=== PATIENT | female | born 1980 | race Caucasian/White ===

== ENCOUNTER 2016-11-01 02:10 | Emergency (ER) | payer SELFPAY ==
--- NOTE | 2016-11-01 02:29 | PDOC ---
History of Present Illness - History of Present Illness Initial Comments: 11/01/16 03:11 The patient is a 36 year old female, with a significant past medical history of kidney stones, UTI, miscarriages, who presents to the emergency department with sudden onset of abdominal pain and diarrhea tonight. The patient states her pain radiates between her right lower quadrant and her suprapubic region. The patient states she also has been experiencing diarrhea this evening. She denies chest pain, shortness of breath, headache and dizziness. She denies fever, chills, nausea, vomit, and constipation. She denies dysuria, frequency, urgency and hematuria. Allergies: NKDA Social history: denies toxic habits PCP - Dr. Lillian Chaparro <Vale Nguyễn - Last Filed: 11/01/16 03:11> <Pramod Danielle - Last Filed: 11/02/16 04:46> - General Stated Complaint: VOMITING, ABDOMINAL PAIN Past History <Vale Nguyễn - Last Filed: 11/01/16 03:11> - Past Medical History Asthma: No Cancer: No Cardiac Disorders: No Diabetes: No HTN: No HIV: No Suicide Attempt (Hx): No Seizures: No Thyroid Disease: No - Immunization History Immunization Up to Date: Yes - Psycho/Social/Smoking Cessation Hx Anxiety: No Suicidal Ideation: No Smoking Status: No Smoking History: Never smoked Have you smoked in the past 12 months: No Number of Cigarettes Smoked Daily: 0 Cigars Per Day: 0 'Breaking Loose' booklet given: 01/31/14 Hx Alcohol Use: No Drug/Substance Use Hx: No Substance Use Type: None Hx Substance Use Treatment: No <Pramod Danielle - Last Filed: 11/02/16 04:46> - Past Medical History Allergies/Adverse Reactions: Allergies Allergy/AdvReac Type Severity Reaction Status Date / Time Apple Tree Allergy Verified 11/16/14 03:06 avocado [Avocado] Allergy Verified 11/16/14 03:06 No Known Drug Allergies Allergy Verified 11/16/14 03:06 peach [[place]] Allergy Verified 11/16/14 03:06 Pear Tree Allergy Verified 11/16/14 03:06 TALLEY Allergy Uncoded 11/16/14 03:06 Home Medications: Ambulatory Orders Ondansetron [Zofran *Odt*] 8 mg SL TID PRN #20 od.tablet 11/01/16 Review of Systems - Review of Systems Able to Perform ROS?: Yes Comments:: 11/01/16 03:12 CONSTITUTIONAL: Absent: fever, chills, diaphoresis, generalized weakness, malaise, loss of appetite HEENT: Absent: rhinorrhea, nasal congestion, throat pain, throat swelling, difficulty swallowing, mouth swelling, ear pain, eye pain, visual Changes CARDIOVASCULAR: Absent: chest pain, syncope, palpitations, irregular heart rate, lightheadedness , peripheral edema RESPIRATORY: Absent: cough, shortness of breath, dyspnea with exertion, orthopnea, wheezing, stridor, hemoptysis GASTROINTESTINAL: (+) diarrhea, RLQ and suprapubic abdominal pain. Absent: abdominal distension, nausea, vomiting, constipation, melena, hematochezia GENITOURINARY: Absent: dysuria, frequency, urgency, hesitancy, hematuria, flank pain, genital pain MUSCULOSKELETAL: Absent: myalgia, arthralgia, joint swelling SKIN: Absent: rash, itching, pallor HEMATOLOGIC/IMMUNOLOGIC: Absent: easy bleeding, easy bruising, lymphadenopathy, frequent infections ENDOCRINE: Absent: unexplained weight gain, unexplained weight loss, heat intolerance, cold intolerance NEUROLOGIC: Absent: headache, focal weakness or paresthesias, dizziness, unsteady gait, seizure, mental status changes, bladder or bowel incontinence PSYCHIATRIC: Absent: anxiety, depression, suicidal or homicidal ideation, hallucinations. <Vale Nguyễn - Last Filed: 11/01/16 03:11> *Physical Exam - Vital Signs Last Vital Signs Temp Pulse Resp BP Pulse Ox 97.3 F L 72 18 105/70 100 11/01/16 02:34 11/01/16 02:34 11/01/16 02:34 11/01/16 02:34 11/01/16 02:34 - Physical Exam Comments: 11/01/16 03:13 GENERAL: Well developed, well nourished. Awake and alert. No acute distress. HEENT: Normocephalic, atraumatic. PERRLA, EOMI. No conjunctival pallor. Sclera are non- icteric. Moist mucous membranes. Oropharynx is clear. NECK: Supple. Full ROM. No JVD. Carotid pulses 2+ and symmetric, without bruits. No thyromegaly. No lymphadenopathy. CARDIOVASCULAR: Regular rate and rhythm. No murmurs, rubs, or gallops. Distal pulses are 2+ and symmetric. PULMONARY: No evidence of respiratory distress. Lungs clear to auscultation bilaterally. No wheezing, rales or rhonchi. ABDOMINAL: (+) Slightly tender to palpation at [place]. Tender to palpation at the RLQ. Soft. Non-distended. No rebound or guarding. No organomegaly. Normoactive bowel sounds. MUSCULOSKELETAL Normal range of motion at all joints. No bony deformities or tenderness. No CVA tenderness. EXTREMITIES: No cyanosis. No clubbing. No edema. No calf tenderness. SKIN: Warm and dry. Normal capillary refill. No rashes. No jaundice. NEUROLOGICAL: Alert, awake, appropriate. Cranial nerves 2-12 intact. Normoreflexic in the upper and lower extremities. Normal speech. Toes are down-going bilaterally. Gait is normal without ataxia. PSYCHIATRIC: Cooperative. Good eye contact. Appropriate mood and affect. <Vale Nguyễn - Last Filed: 11/01/16 03:11> ED Treatment Course - LABORATORY CBC & Chemistry Diagram: 11/01/16 03:11 11/01/16 03:11 <Pramod Danielle - Last Filed: 11/02/16 04:46> *DC/Admit/Observation/Transfer - Attestations Scribe Attestion: 11/01/16 03:13 Documentation prepared by Vale Nguyễn, acting as medical manager for Pramod Danielle MD, MD <Vale Nguyễn - Last Filed: 11/01/16 03:11> - Discharge Dispostion Admit: No <Pramod Danielle - Last Filed: 11/02/16 04:46> Diagnosis at time of Disposition: Gastroenteritis - Discharge Dispostion Disposition: HOME Condition at time of disposition: Improved - Prescriptions Prescriptions: Ondansetron [Zofran *Odt*] 8 mg SL TID PRN #20 od.tablet PRN Reason: Nausea - Referrals Referrals: Lillian Chaparro MD [Primary Care Provider] - - Patient Instructions Printed Discharge Instructions: DI for Viral Gastroenteritis -- Adult Additional Instructions: Activity as tolerated. Stay hydrated. Advance diet as tolerated, avoiding dairy , spicy or fatty foods, caffeine and alcohol. Tylenol 1000 mg every 8 hours as needed for pain. Zofran as prescribed as needed for nausea. Blood tests, a urine test, and a CT of the abdomen/pelvis showed a likely mild infectious process. This could be viral gastroenteritis. If symptoms persist more than another 48-72 hours, return to the ER or your doctor for antibiotics for possible colitis. You should follow up with Dr. Chaparro as soon as possible regarding today's emergency department visit. Return to the emergency department for any new or concerning symptoms, particularly persistent or worsening pain, high fevers or chills, persistent vomiting or dehydration, bloody diarrhea. - Post Discharge Activity Work/School Note: Back to Work
[2016-11-01 02:37] VITALS: BMI 24.1
[2016-11-01] MEDS ORDERED: SODIUM CHLORIDE 1,000 ML IV STA ×2 (03:08→06:11)
[2016-11-01 03:23] LABS: BASOPHIL 0.3 % (0-2.0); EOSINOPHIL 0.5 % (0-4.5); MCH 28.8 pg (25.7-33.7); MCHC 32.9 g/dl (32.0-36.0); MEAN CELL VOLUME 87.7 fl (80-96); MEAN PLT VOLUME 8.6 fl (7.5-11.1); NEUTROPHILS 84.2 % (42.8-82.8); PLATELET COUNT 185 K/MM3 (134-434); RDW 13.6 % (11.6-15.6); WHITE BLOOD COUNT 12.1 K/mm3 (4.0-10.0)
[2016-11-01 03:24] LABS: PH,URINE 6.5 (5.0-8.0); URINE APPEARANCE CLEAR; URINE BILIRUBIN NEGATIVE (NEGATIVE); URINE BLOOD NEGATIVE (NEGATIVE); URINE COLOR YELLOW; URINE GLUCOSE (UA) NEGATIVE (NEGATIVE); URINE KETONE NEGATIVE (NEGATIVE); URINE LEUK ESTERASE NEGATIVE (NEGATIVE); URINE NITRITE NEGATIVE (NEGATIVE); URINE PROTEIN NEGATIVE (NEGATIVE); URINE UROBILINOGEN 0.2 E.U/dl E.U./dl (0.2-1.0)
[2016-11-01 03:48] LABS: ALBUMIN 3.9 g/dl (3.4-5.0); ANION GAP 7 (8-16); BILIRUBIN,TOTAL 0.7 mg/dL (0.2-1.0); CALCIUM 8.8 mg/dL (8.5-10.1); CO2 29 mmol/L (21-32); CREATININE 0.8 mg/dL (0.55-1.02); GLUCOSE,RANDOM 109 mg/dL (74-106); SGOT/AST 17 U/L (15-37); SGPT/ALT 22 U/L (12-78); TOT PROT 7.3 g/dl (6.4-8.2)
[2016-11-01 03:49] LABS: ALK PHOS 55 U/L (45-117)
[2016-11-01] MEDS ORDERED: METOCLOPRAMIDE HCL INJECTION 10 MG/2 ML VIAL IVPUSH ONE (06:36)
[2016-11-01] MEDS ORDERED: METOCLOPRAMIDE HCL INJECTION 10 MG/2 ML VIAL ONE (06:38)
--- NOTE | 2016-11-01 10:06 | PDOC ---
*Physical Exam - Vital Signs Last Vital Signs Temp Pulse Resp BP Pulse Ox 97.3 F L 69 16 100/61 100 11/01/16 02:34 11/01/16 06:11 11/01/16 06:11 11/01/16 06:11 11/01/16 06:11 - Physical Exam Comments: 11/01/16 09:52 afebrile. tolerating PO abdominal discomfort to palpation without guarding/rebound. BS wnl ED Treatment Course - LABORATORY CBC & Chemistry Diagram: 11/01/16 03:11 11/01/16 03:11 - ADDITIONAL ORDERS Additional order review: Laboratory Results 11/01/16 11/01/16 03:11 03:11 Sodium 139 Potassium 4.2 Chloride 103 Carbon Dioxide 29 Anion Gap 7 L BUN 20 H D Creatinine 0.8 D Creat Clearance w eGFR > 60 Random Glucose 109 H D Calcium 8.8 Total Bilirubin 0.7 AST 17 D ALT 22 D Alkaline Phosphatase 55 Total Protein 7.3 Albumin 3.9 Lipase 175 Serum , Qual Negative Urine Color Yellow Urine Appearance Clear Urine pH 6.5 Ur Specific [place] 1.025 Urine Protein Negative Urine Glucose (UA) Negative Urine Ketones Negative Urine Blood Negative Urine Nitrite Negative Urine Bilirubin Negative Urine Urobilinogen 0.2 e.u/dl Ur Leukocyte Esterase Negative 11/01/16 03:11 RBC 4.34 MCV 87.7 MCHC 32.9 RDW 13.6 MPV 8.6 Neutrophils % 84.2 H D Lymphocytes % 10.9 D Monocytes % 4.1 Eosinophils % 0.5 Basophils % 0.3 - Medications Given in the ED: ED Medications Discontinued Medications Generic Name Dose Route Start Last Admin Trade Name Love PRN Reason Stop Dose Admin Fentanyl 50 mcg 11/01/16 06:10 11/01/16 06:25 Sublimaze Injection - IVPUSH 11/01/16 06:11 50 mcg ONCE ONE Administration Sodium Chloride 1,000 mls @ 1,000 mls/hr 11/01/16 03:08 11/01/16 03:29 Normal Saline - IV 11/01/16 04:07 1,000 mls/hr ASDIR STA Administration Sodium Chloride 1,000 mls @ 1,000 mls/hr 11/01/16 06:11 11/01/16 06:25 Normal Saline - IV 11/01/16 07:10 1,000 mls/hr ASDIR STA Administration Metoclopramide HCl 10 mg 11/01/16 06:36 11/01/16 06:43 Reglan Injection - IVPUSH 11/01/16 06:37 10 mg ONCE ONE Administration Medical Decision Making - Medical Decision Making 11/01/16 09:54 Received signout on this otherwise healthy 36-year-old female who presented with abdominal pain/nausea/vomiting/diarrhea, white count of 12, clear urinalysis. Differential was colitis versus gastroenteritis, rule out appendicitis. Plan at signout was to check CT of the abdomen and pelvis and discharge if negative. CT essentially unremarkable, nonobstructing right renal stone, nondistention versus mild colitis. Patient feels and looks well, will give Zofran at home as needed for nausea, understands return criteria. *DC/Admit/Observation/Transfer Diagnosis at time of Disposition: Gastroenteritis - Discharge Dispostion Disposition: HOME Condition at time of disposition: Improved - Prescriptions Prescriptions: Ondansetron [Zofran *Odt*] 8 mg SL TID PRN #20 od.tablet PRN Reason: Nausea - Referrals Referrals: Lillian Chaparro MD [Primary Care Provider] - - Patient Instructions Printed Discharge Instructions: DI for Viral Gastroenteritis -- Adult Additional Instructions: Activity as tolerated. Stay hydrated. Advance diet as tolerated, avoiding dairy , spicy or fatty foods, caffeine and alcohol. Tylenol 1000 mg every 8 hours as needed for pain. Zofran as prescribed as needed for nausea. Blood tests, a urine test, and a CT of the abdomen/pelvis showed a likely mild infectious process. This could be viral gastroenteritis. If symptoms persist more than another 48-72 hours, return to the ER or your doctor for antibiotics for possible colitis. You should follow up with Dr. Chaparro as soon as possible regarding today's emergency department visit. Return to the emergency department for any new or concerning symptoms, particularly persistent or worsening pain, high fevers or chills, persistent vomiting or dehydration, bloody diarrhea. - Post Discharge Activity
[2016-11-01 10:09] VITALS: BP 103/57; PULSE 63; TEMP 98
== END 2016-11-01 10:17 | disposition home or self-care (01) ==
LOC: JER 02:10
PROC: 3E0337Z Introduction of Electrolytic and Water Balance Substance into Peripheral Vein, Percutaneous Approach (ICD-10-PCS; principal; 2016-11-01)
PROC: 3E033GC Introduction of Other Therapeutic Substance into Peripheral Vein, Percutaneous Approach (ICD-10-PCS; 2016-11-01)
PROC: 3E033NZ Introduction of Analgesics, Hypnotics, Sedatives into Peripheral Vein, Percutaneous Approach (ICD-10-PCS; 2016-11-01)
DX: K52.9 Noninfective gastroenteritis and colitis, unspecified (principal)
CPT/HCPCS: 36415; 74177-TC; 80053; 81003; 83690; 84703; 85025; 99284-25

== ENCOUNTER 2017-09-20 08:50 | Emergency (ER) | payer BC ==
[2017-09-20 09:23] VITALS: BP 102/56; PULSE 90; TEMP 102.3; BMI 27.4
[2017-09-20] MEDS ORDERED: IBUPROFEN 400 MG TABLET (FP) PO ONE (09:50)
[2017-09-20] MEDS ORDERED: SODIUM CHLORIDE 0.9% 1000 ML INFUS.BAG IV ONE (09:54)
[2017-09-20] MEDS ORDERED: ACETAMINOPHEN 1000 MG/100 ML VIAL (NON FORMULARY) IVPB ONE (09:54)
[2017-09-20] MEDS ORDERED: ONDANSETRON 4 MG/2 ML VIAL IVPB ONE (09:54)
--- NOTE | 2017-09-20 09:55 | PDOC ---
History of Present Illness - General Chief Complaint: Sore Throat Stated Complaint: THROAT PAIN Time Seen by Provider: 09/20/17 09:45 History Source: Patient Exam Limitations: No Limitations - History of Present Illness Initial Comments: 09/20/17 10:04 37 yr female no medical history with sore throat, right lower back pain diff urination for 3 days with vomiting yesterday unable to keep anything down. no abd pain no sick contacts. Timing/Duration: constant, getting worse Severity: moderate Past History - Past Medical History Allergies/Adverse Reactions: Allergies Allergy/AdvReac Type Severity Reaction Status Date / Time Apple Tree Allergy Verified 09/20/17 09:18 avocado [Avocado] Allergy Verified 09/20/17 09:18 No Known Drug Allergies Allergy Verified 09/20/17 09:18 peach [[place]] Allergy Verified 09/20/17 09:18 Pear Tree Allergy Verified 09/20/17 09:18 TALLEY Allergy Uncoded 09/20/17 09:18 Home Medications: Ambulatory Orders Ondansetron [Zofran *Odt*] 8 mg SL TID PRN #20 od.tablet 11/01/16 Cephalexin [Keflex] 500 mg PO TID #30 capsule 09/20/17 Ibuprofen 800 mg PO TID PRN #30 tablet 09/20/17 Asthma: No Cancer: No Cardiac Disorders: No CVA: No COPD: No Diabetes: No HTN: No Seizures: No Thyroid Disease: No - Surgical History Abdominal Surgery: Yes (D&C) - Immunization History Immunization Up to Date: Yes - Suicide/Smoking/Psychosocial Hx Smoking Status: No Smoking History: Never smoked Have you smoked in the past 12 months: No Number of Cigarettes Smoked Daily: 0 Cigars Per Day: 0 Information on smoking cessation initiated: No 'Breaking Loose' booklet given: 01/31/14 Hx Alcohol Use: No Drug/Substance Use Hx: No Substance Use Type: None Hx Substance Use Treatment: No *Physical Exam - Vital Signs Last Vital Signs Temp Pulse Resp BP Pulse Ox 102.3 F H 90 17 102/56 98 09/20/17 09:19 09/20/17 09:19 09/20/17 09:19 09/20/17 09:19 09/20/17 09:19 - Physical Exam General Appearance: Yes: Nourished, Mild Distress HEENT: positive: EOMI, J[place], TMs Normal, Pharyngeal Erythema, Tonsillar Erythema Neck: positive: Supple, Lymphadenopathy (R). negative: Tender, Lymphadenopathy (L) Respiratory/Chest: positive: Lungs Clear, Normal Breath Sounds Cardiovascular: positive: Regular Rhythm, Regular Rate Gastrointestinal/Abdominal: positive: Normal Bowel Sounds, Soft Musculoskeletal: positive: Normal Inspection, CVA Tenderness (R) Extremity: positive: Normal Capillary Refill, Normal Inspection, Normal Range of Motion Integumentary: positive: Pale Neurologic: positive: Fully Oriented, Alert, Normal Mood/Affect, Normal Response , Motor Strength 01/07 ED Treatment Course - LABORATORY CBC & Chemistry Diagram: 09/20/17 10:15 09/20/17 10:15 Medical Decision Making - Medical Decision Making 09/20/17 10:06 cc: fever, sore throat vomiting flank pain will check for strep IVF, labs zofran r/o strep r/o pyelo 09/20/17 12:33 temp 98.7 pt feels better kidney US is normal *DC/Admit/Observation/Transfer Diagnosis at time of Disposition: Urinary tract infection Qualifiers: Urinary tract infection type: acute cystitis Hematuria presence: with hematuria Qualified Code(s): N30.01 - Acute cystitis with hematuria Pharyngitis Qualifiers: Pharyngitis/tonsillitis etiology: unspecified etiology Qualified Code(s): J02.9 - Acute pharyngitis, unspecified - Discharge Dispostion Disposition: HOME Condition at time of disposition: Good - Prescriptions Prescriptions: Cephalexin [Keflex] 500 mg PO TID #30 capsule Ibuprofen 800 mg PO TID PRN #30 tablet PRN Reason: fever - Referrals Referrals: Lillian Chaparro MD [Primary Care Provider] - - Patient Instructions Additional Instructions: drink at least 2 liters of water a day take zofran for nausea or vomiting as needed take the antibiotics for urine and throat infection take ibuprofen 800mg every 6hrs for fever or pain ice pops, jello, soft foods as tolerated follow with your doctor in 2-3 days for a follow up Return to ER for any worsening symptoms - Post Discharge Activity
[2017-09-20] MEDS ORDERED: ACETAMINOPHEN INJECTION 100 ML IVPB ONE (09:58)
[2017-09-20 10:06] LABS: URINE APPEARANCE SLCLOUDY; URINE BILIRUBIN NEGATIVE (NEGATIVE); URINE BLOOD 2+ (NEGATIVE); URINE COLOR AMBER; URINE GLUCOSE (UA) NEGATIVE (NEGATIVE); URINE KETONE 1+ (NEGATIVE); URINE LEUK ESTERASE TRACE (NEGATIVE); URINE NITRITE NEGATIVE (NEGATIVE)
[2017-09-20 10:07] LABS: URINE PROTEIN 2+ (NEGATIVE)
[2017-09-20 10:09] LABS: HCG,QUALITATIVE URINE NEGATIVE
[2017-09-20] MEDS ORDERED: ONDANSETRON *ODT* 4 MG TABLET ONE (10:33)
[2017-09-20 10:36] LABS: EPI CELLS MODERATE /HPF (FEW); URINE MUCUS MODERATE
[2017-09-20 10:46] LABS: BASO % 0.3 % (0-2.0); HEMATOCRIT 39.5 % (32.4-45.2); HEMOGLOBIN 12.7 GM/dL (10.7-15.3); LYMPH % 8.5 % (8-40); MCH 27.7 pg (25.7-33.7); MCHC 32.2 g/dl (32.0-36.0); MEAN PLT VOLUME 8.7 fl (7.5-11.1); NEUT % 84.2 % (42.8-82.8); PLATELET COUNT 174 K/MM3 (134-434); RBC 4.59 M/mm3 (3.60-5.2); RDW 14.3 % (11.6-15.6)
[2017-09-20 10:48] LABS: ALBUMIN 3.5 g/dl (3.4-5.0); ANION GAP 10 (8-16); BLOOD UREA NITROGEN 10 mg/dL (7-18); CHLORIDE 102 mmol/L (98-107); CO2 23 mmol/L (21-32); GLUCOSE,RANDOM 126 mg/dL (74-106); POTASSIUM 3.2 mmol/L (3.5-5.1); SODIUM 135 mmol/L (136-145)
[2017-09-20 10:52] LABS: ALK PHOS 56 U/L (45-117); CREATININE 1.1 mg/dL (0.55-1.02); SGOT/AST 13 U/L (15-37); SGPT/ALT 17 U/L (12-78); TOT PROT 7.6 g/dl (6.4-8.2)
[2017-09-20] MEDS ORDERED: CEFAZOLIN 1 GM in DEXTROSE 5%-WATER - 50 ML IVPB STA (11:27)
[2017-09-20] MEDS ORDERED: CEFAZOLIN 1 GM/D5W 1 GM/50 ML BAG ONE (12:30)
== END 2017-09-20 13:13 | disposition home or self-care (01) ==
LOC: JERFT 08:50
PROC: 3E03329 Introduction of Other Anti-infective into Peripheral Vein, Percutaneous Approach (ICD-10-PCS; principal; 2017-09-20)
PROC: 3E033GC Introduction of Other Therapeutic Substance into Peripheral Vein, Percutaneous Approach (ICD-10-PCS; 2017-09-20)
PROC: 3E033NZ Introduction of Analgesics, Hypnotics, Sedatives into Peripheral Vein, Percutaneous Approach (ICD-10-PCS; 2017-09-20)
DX: N30.01 Acute cystitis with hematuria (principal); J02.9 Acute pharyngitis, unspecified
CPT/HCPCS: 36415; 76775-TC; 80053; 81003; 81015; 84703; 85025; 87070; 87077; 87086; 87186; 87430; 99281-25

== ENCOUNTER 2018-08-15 10:28 | Day surgery (SDC) | payer BC ==
[2018-08-14 12:04] VITALS: BMI 26.7
[2018-08-15] MEDS ORDERED: ceFAZolin SODIUM 1 GM VIAL ONE (11:18)
[2018-08-15] MEDS ORDERED: INDOCYANINE GREEN 25 MG/10 ML VIAL IVPUSH ONE (11:48)
[2018-08-15] MEDS ORDERED: BUPIVACAINE HCL/PF 0.5% (5MG/ML) 10 ML VIAL ONE (11:49)
[2018-08-15] MEDS ORDERED: LIDOCAINE 1%/EPI 1:100000 (20 ML MULTI DOSE VIAL) ONE (11:49)
--- NOTE | 2018-08-15 12:30 | HP ---
History & Physical Update - History History: No Change - Physical Physical: No Change - Assessment Assessment: No Change - Plan Plan: No Change
[2018-08-15] MEDS ORDERED: MIDAZOLAM HCL 2 MG/2 ML SINGLE DOSE VIAL ONE ×2 (13:04→15:05)
[2018-08-15] MEDS ORDERED: ROCURONIUM BROMIDE 50 MG/5 ML VIAL ONE (13:06)
[2018-08-15] MEDS ORDERED: fentaNYL CITRATE 250 MCG/5 ML VIAL ONE (13:06)
[2018-08-15] MEDS ORDERED: PROPOFOL 20 ML ONE (13:06)
[2018-08-15] MEDS ORDERED: LIDOCAINE HCL/PF 2% SDV 5ML VIAL ONE (13:06)
[2018-08-15] MEDS ORDERED: ceFAZolin SODIUM 1 GM VIAL IVPB ONE (13:17)
[2018-08-15] MEDS ORDERED: LIDOCAINE 1%/EPI 1:100000 (20 ML MULTI DOSE VIAL) IJ ONE (13:34)
[2018-08-15] MEDS ORDERED: oxyCODONE HCL 5 MG TABLET PO PRN (14:07)
[2018-08-15] MEDS ORDERED: PROMETHAZINE HCL 25 MG/1 ML VIAL IVPUSH PRN (14:07)
[2018-08-15] MEDS ORDERED: ONDANSETRON 4 MG/2 ML VIAL IVPUSH PRN (14:07)
[2018-08-15] MEDS ORDERED: ePHEDrine SULFATE 50 MG/1 ML AMPULE ONE (14:13)
[2018-08-15] MEDS ORDERED: NEOSTIGMINE METHYLSULFATE 0.5 MG/ML - 10 ML MDV ONE (14:19)
[2018-08-15] MEDS ORDERED: GLYCOPYRROLATE 0.2 MG/1 ML VIAL ONE (14:19)
[2018-08-15] MEDS ORDERED: MIDAZOLAM HCL 2 MG/2 ML SINGLE DOSE VIAL IVPUSH ONE ×3 (15:10→15:20)
[2018-08-15] MEDS ORDERED: IBUPROFEN 800 MG/8 ML IJ IVPB ONE ×3 (15:11→15:41)
--- NOTE | 2018-08-15 15:12 | OP ---
Operative Note - Note: Operative Date: 08/15/18 Pre-Operative Diagnosis: Left ovarian cyst, concerning for malignancy Operation: Robotic assisted left ovarian cystectomy Findings: Borderline tumor Right ovarian cyst Surgeon: Allison Raymond Tray Setter: Leigh Roy Anesthesia: General Estimated Blood Loss (mls): 10 Fluid Volume Replaced (mls): 1,100 Operative Report Dictated: Yes
[2018-08-15] MEDS ORDERED: ACETAMINOPHEN INJECTION 100 ML IVPB ONE (15:20)
[2018-08-15] MEDS ORDERED: ACETAMINOPHEN 1000 MG/100 ML VIAL (NON FORMULARY) IVPB ONE (15:30)
[2018-08-15 17:12] VITALS: TEMP 97.3
--- NOTE | 2018-08-15 18:27 | OP ---
DATE OF OPERATION: 08/15/2018 PREOPERATIVE DIAGNOSIS: Right adnexal mass, elevated CA125. 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 PROCEDURE: Robotic assisted right ovarian cystectomy. SURGEON: Allison Raymond M.D. MANAGER ADVANCED: Leigh Roy D.O., and Delaney Avilez ANESTHESIA: General endotracheal anesthesia and local. ESTIMATED BLOOD LOSS: 10 mL. COMPLICATIONS: None. INDICATION: This is a 38-year-old with history of right adnexal mass which was found on pelvic ultrasound and was found to have an elevated CA125 in the 70s. It was repeated the following month and was well over 400. Given the concern for elevated CA125, she was counseled regarding surgical management. Risks, benefits, indications, alternatives were discussed with the patient. All questions were answered. Informed consent was signed. FINDINGS: Uterus 8 weeks size and bulky, appeared consistent with adenomyosis. Left and ovary normal. Right ovary contained a 4-cm multicystic lesion. Bilateral tubes appeared normal. There was no evidence of endometriosis in the abdomen or pelvis. The liver edge appeared smooth or normal. DESCRIPTION OF PROCEDURE: The patient was taken to the operating room, placed in dorsal supine position. General endotracheal anesthesia was obtained without difficulty. She was placed in the dorsal lithotomy position in Sai stirrups and prepped and draped in normal, sterile fashion. A Mishra catheter was placed in the bladder. Attention was turned to patient's abdomen. 5 mL of 1% lidocaine with epinephrine was injected into the umbilicus, and an 8 mm incision was made with the scalpel. While tenting the anterior abdominal wall, the Veress needle was inserted intraabdominally and the abdomen was insufflated with CO2 gas. An 8 mm trocar was then placed. Intraabdominal placement was confirmed buy direct visualization of the laparoscope. Additional 12-mm trocar was placed in the right mid quadrant, and exploration of the abdomen and pelvis revealed above noted findings. Washings were taken using normal saline. We then placed 8-mm trocar through the 12-mm cannula. The Da Nima robot was then docked without difficulty. The right adnexal mass was elevated and we made a circumferential incision along the ovary along the hilum and excised the ovarian mass, leaving a good portion of normal ovary. This mass was placed in the EndoCatch bag and handed off the field for frozen section serous borderline tumor. The ovarian wall was cauterized and noted to be hemostatic. Surgicel was placed for added assurance. The pelvis was thoroughly irrigated, noted to be hemostatic. All instruments were removed from the patient's abdomen. The Da Nima robot was then undocked. The trocars were removed. The right mid quadrant incision was closed at the fascia using 0 Vicryl. Skin was closed with 4-0 Monocryl. Dermabond was applied. Mishra catheter was then removed. Sponge, needle, instrument counts were correct x2. Patient was extubated and transferred in stable condition to the PACU. Bceky [id number]
[2018-08-15] MEDS ORDERED: ONDANSETRON 4 MG/2 ML VIAL ONE (18:37)
[2018-08-15] MEDS ORDERED: ONDANSETRON 4 MG TABLET PO ONE (18:45)
[2018-08-15] MEDS ORDERED: ONDANSETRON 4 MG/2 ML VIAL IVPUSH ONE (18:47)
[2018-08-15 19:54] VITALS: BP 99/66; PULSE 68
--- NOTE | 2018-08-17 16:30 | PATH ---
Surgical Pathology Report Patient Name: JOHN FUNK [facility]. Rec. #: [id number] /Age/Gender: 1980 (Age: 38) / F Account: [id number] Location: [facility] SURGICAL Taken: 08/15/2018 Received: 08/15/2018 Reported: 08/17/2018 Physicians: Allison Raymond MD Specimen(s) Received RIGHT ADNEXAL CYST Clinical History Right adnexal cyst Intraoperative Consult Diagnosis Right adnexal cyst, frozen section: Favor serous borderline tumor in this material. 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 SIZE: 4.5 x 3.4 x 2.6 CM. CYST SURFACE IS NOT INVOLVED. Comment: Concurrent peritoneal washings negative ([id number]). Case seen in interdepartmentally. Electronically Signed Serena Friedman M.D. Gross Description Received fresh labeled "right ovarian cyst," is a 4.5 x 3.4 x 2.6 cm intact cystic structure. The outer surface is anderson-pink and smooth. The lumen contains anderson mucinous fluid. The inner lining of the cyst displays abundant anderson papillary excrescences. A risk control representative section is submitted for frozen section. The specimen is entirely submitted in 10 cassettes with the frozen section residue in cassette 1. /08/15/201808/15/2018
--- NOTE | 2018-08-17 16:33 | PATH ---
Cytology Non-Gynecological Report Patient Name: JOHN FUNK [facility]. Rec. #: [id number] /Age/Gender: 1980 (Age: 38) / F Account: [id number] Location: [facility] SURGICAL Taken: 08/15/2018 Received: 08/16/2018 Reported: 08/17/2018 Physicians: Allison Raymond MD Specimen(s) Received PELVIC WASHINGS Clinical History Right adnexal cyst Final Diagnosis PELVIC WASHING FOR CYTOLOGY: SATISFACTORY FOR EVALUATION. NO MALIGNANT CELLS IDENTIFIED. MESOTHELIAL CELLS AND LYMPHOCYTES PRESENT. Comment: See concurrent material ([id number]). Electronically Signed Serena Friedman M.D. Gross Description Approximately 25 cc of yellow fluid received fresh. One cytofunnel prepared and Pap stained. One cellblock prepared.
== END 2018-08-15 19:40 | disposition home or self-care (01) ==
LOC: JASU-SURG 10:28
PROVIDERS: ATTEND Obstetrics & Gynecology Gynecologic Oncology
PROC: 0UB04ZZ Excision of Right Ovary, Percutaneous Endoscopic Approach (ICD-10-PCS; principal; 2018-08-15 12:00)
DX: N83.291 Other ovarian cyst, right side (principal)
CPT/HCPCS: 84703; 88108; 88305-TC; 88331-TC; 94760; J0131

== ENCOUNTER 2018-11-04 14:04 | Emergency (ER) | payer BC ==
[2018-11-04 14:36] VITALS: BMI 26.4
--- NOTE | 2018-11-04 16:08 | PDOC ---
Attending Attestation - Resident Resident Name: Josue Lopez - HPI HPI: 11/04/18 18:12 Pt presents to the ED complaining of diffuse, burning suprapubic pain that is not associated with urination. Denies fever, nausea or vomiting, but does complain of vaginal itching and discharge. Denies prior history of similar pain. - Physicial Exam PE: 11/04/18 18:13 Agree wit resident exam. Patient is alert and oriented and in no acute distress. Abdomen is soft, non distended with mild suprapubic tenderness without guarding or rebound. 11/04/18 19:00 - Medical Decision Making 11/04/18 19:00 Pt presents to the ED complaining of suprapubic pain
--- NOTE | 2018-11-04 16:24 | PDOC ---
History of Present Illness - General Chief Complaint: Pain, Acute Stated Complaint: SENT BY URGENT CARE Time Seen by Provider: 11/04/18 15:59 History Source: Patient Exam Limitations: No Limitations - History of Present Illness Initial Comments: 11/04/18 16:22 38 yo female pmh of UTIs, kidney stone, bacterial vaginosis, chlamydia infection and removal of right adnexal mass with elevated CA125 08/22/2018 presents to the ED with 1 week of vaginal burning, malodorous vaginal discharge , urinary frequency, flank pain, suprapubic pain and chills. Burning is constant , does not change with urination, right flank pain is described as dull, non radiating and constant. Pt also admits to vaginal discharge described as thick and white, malodorous. 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 Past History - Past Medical History Allergies/Adverse Reactions: Allergies Allergy/AdvReac Type Severity Reaction Status Date / Time Apple Tree Allergy Verified 11/04/18 14:33 avocado [Avocado] Allergy Verified 11/04/18 14:33 No Known Drug Allergies Allergy Verified 11/04/18 14:33 peach [[place]] Allergy Verified 11/04/18 14:33 Pear Tree Allergy Verified 11/04/18 14:33 TALLEY Allergy Uncoded 11/04/18 14:33 Home Medications: Ambulatory Orders NK [No Known Home Medication] 08/14/18 Anemia: No Asthma: No Cancer: No Cardiac Disorders: No CVA: No COPD: No CHF: No Dementia: No Diabetes: No GI Disorders: No Disorders: No HTN: No Hypercholesterolemia: No Liver Disease: No Seizures: No Thyroid Disease: No Other medical history: DENIES. - Surgical History Abdominal Surgery: Yes (D&C) - Immunization History Immunization Up to Date: Yes - Suicide/Smoking/Psychosocial Hx Smoking Status: No Smoking History: Never smoked Have you smoked in the past 12 months: No Number of Cigarettes Smoked Daily: 0 Cigars Per Day: 0 'Breaking Loose' booklet given: 01/31/14 Hx Alcohol Use: No Drug/Substance Use Hx: No Substance Use Type: None Hx Substance Use Treatment: No Review of Systems - Review of Systems Constitutional: Yes: Chills. No: Fever Respiratory: No: Shortness of Breath Cardiac (ROS): No: Chest Pain ABD/GI: Yes: Nausea, Other (right flank and suprapubic pain). No: Constipated, Diarrhea, Rectal Bleeding, Vomiting : Yes: Discharge, Frequency, Flank Pain, Other (vaginal burning constant, not just on urination with vaginal discharge). No: Hematuria Musculoskeletal: No: Back Pain *Physical Exam - Vital Signs Last Vital Signs Temp Pulse Resp BP Pulse Ox 98.3 F 60 19 101/55 L 99 11/04/18 14:33 11/04/18 14:33 11/04/18 14:33 11/04/18 14:33 11/04/18 14:33 - Physical Exam General Appearance: Yes: Nourished, Appropriately Dressed. No: Apparent Distress HEENT: positive: EOMI Neck: positive: Supple Respiratory/Chest: positive: Chest Tender, Lungs Clear, Normal Breath Sounds. negative: Accessory Muscle Use, Crackles, Rales, Rhonchi, Stridor, Wheezing Cardiovascular: positive: Regular Rhythm, Regular Rate, S1, S2. negative: Edema , JVD, Murmur Vascular Pulses: Dorsalis-Pedis (R): 4+, Doralis-Pedis (L): 4+ Female Pelvic Exam: positive: cervical os closed, normal adnexa. negative: CMT , lesions, Bartholin mass, adnexal tenderness, vaginal bleeding Gastrointestinal/Abdominal: positive: Normal Bowel Sounds, Flat, Soft, Tenderness (right flank with CVA). negative: Distended, Guarding, Rebound Musculoskeletal: positive: Normal Inspection Extremity: positive: Normal Capillary Refill, Normal Inspection Integumentary: positive: Normal Color, Dry, Warm Neurologic: positive: Fully Oriented, Alert, Normal Mood/Affect, Normal Response Moderate Sedation - Procedure Monitoring Vital Signs: Procedure Monitoring Vital Signs Temperature 98.3 F 11/04/18 14:33 Pulse Rate 60 11/04/18 14:33 Respiratory Rate 19 11/04/18 14:33 Blood Pressure 101/55 L 11/04/18 14:33 O2 Sat by Pulse Oximetry (%) 99 11/04/18 14:33 Medical Decision Making - Medical Decision Making 11/04/18 20:26 38 yo female pmh of UTI, kidney stones, BV and chlamydia comes to the ED with vaginal burning and RUQ pain. 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 Return to the ER for new or concerning symptoms including but not limited to: high fevers, excessive pain not relived by over the counter Tylenol or Motrin, vaginal bleeding. Thank you - Post Discharge Activity
[2018-11-04 17:43] LABS: BASO % 0.4 % (0-2.0); EOS % 2.9 % (0-4.5); HEMATOCRIT 38.8 % (32.4-45.2); HEMOGLOBIN 13.2 GM/dL (10.7-15.3); LYMPH % 32.9 % (8-40); MCH 30.7 pg (25.7-33.7); MEAN CELL VOLUME 90.2 fl (80-96); MEAN PLT VOLUME 9.1 fl (7.5-11.1); NEUT % 56.8 % (42.8-82.8); PLATELET COUNT 155 K/MM3 (134-434); RBC 4.31 M/mm3 (3.60-5.2); RDW 13.9 % (11.6-15.6); WHITE BLOOD COUNT 6.7 K/mm3 (4.0-10.0)
[2018-11-04 18:11] LABS: HCG,QUALITATIVE URINE NEGATIVE
[2018-11-04 18:17] LABS: URINE APPEARANCE CLOUDY; URINE BILIRUBIN NEGATIVE (<2.0 mg/dL); URINE COLOR YELLOW; URINE GLUCOSE (UA) NEGATIVE (NEGATIVE); URINE KETONE NEGATIVE (NEGATIVE); URINE LEUK ESTERASE 1+ (NEGATIVE); URINE NITRITE NEGATIVE (NEGATIVE); URINE PROTEIN NEGATIVE (NEGATIVE)
[2018-11-04 18:21] LABS: EPI CELLS MODERATE /HPF (FEW); URINE MUCUS FEW
[2018-11-04 18:23] LABS: ALBUMIN 3.7 g/dl (3.4-5.0); ALK PHOS 55 U/L (45-117); BILIRUBIN,TOTAL 0.4 mg/dL (0.2-1); BLOOD UREA NITROGEN 16 mg/dL (7-18); CALCIUM 8.3 mg/dL (8.5-10.1); CO2 23 mmol/L (21-32); CREATININE 0.8 mg/dL (0.55-1.3); GLUCOSE,RANDOM 78 mg/dL (74-106); LIPASE 156 U/L (73-393); POTASSIUM 3.9 mmol/L (3.5-5.1); SGOT/AST 12 U/L (15-37); SGPT/ALT 23 U/L (13-61); SODIUM 138 mmol/L (136-145); TOT PROT 7.1 g/dl (6.4-8.2)
[2018-11-04 18:24] LABS: ANION GAP 9 MMOL/L (8-16); CHLORIDE 106 mmol/L (98-107)
[2018-11-04 18:33] VITALS: BP 94/61; PULSE 66; TEMP 98.5
== END 2018-11-04 21:01 | disposition home or self-care (01) ==
LOC: JERFT 14:04
DX: N94.9 Unspecified condition associated with female genital organs and menstrual cycle (principal); Z87.42 Personal history of other diseases of the female genital tract
CPT/HCPCS: 36415; 76775-TC; 76830-TC; 80053; 81003; 81015; 83690; 84703; 85025; 87086; 87186; 87491; 87591; 99284-25

== ENCOUNTER 2019-04-23 02:28 | Emergency (ER) | payer BC ==
[2019-04-23 02:46] VITALS: TEMP 98.6; BMI 26.2
--- NOTE | 2019-04-23 03:07 | PDOC ---
History of Present Illness - History of Present Illness Initial Comments: 04/23/19 05:24 Ms. Martinez is a 39 y/o woman with no PMH presenting with a two day history of weakness, increased urinary frequency, and headache with vomiting. She reports that she began feeling weak two days ago, and noted increased urinary frequency. She reports that initially she only noted increased frequency, but also endorses dysuria that started today. She reports that her headache began today at approx 2200, and worsened steadily since then. She rates the pain 9/10 , unilateral L sided, throbbing, as well as new onset light sensitivity, nausea , and vomiting that all began at around 2200. She has no history of prior migraine headaches, and no family history of migraines. She denies any morning headaches or headaches that wake her from sleep. She reports vomiting three times over the course of the evening, denies any blood or bile in the vomit. <Kevin Kaiser - Last Filed: 04/23/19 05:16> <Emily Piper - Last Filed: 04/23/19 06:24> - General Chief Complaint: Headache Stated Complaint: HEADACHE/VOMITING Time Seen by Provider: 04/23/19 03:06 Past History - Past Medical History Anemia: No Asthma: No Cancer: No Cardiac Disorders: No CVA: No COPD: No CHF: No Dementia: No Diabetes: No GI Disorders: No Disorders: No HTN: No Hypercholesterolemia: No Liver Disease: No Seizures: No Thyroid Disease: No - Surgical History Abdominal Surgery: Yes (D&C) - Immunization History Immunization Up to Date: Yes - Suicide/Smoking/Psychosocial Hx Smoking Status: No Smoking History: Never smoked Have you smoked in the past 12 months: No Number of Cigarettes Smoked Daily: 0 Cigars Per Day: 0 Information on smoking cessation initiated: No 'Breaking Loose' booklet given: 01/31/14 Hx Alcohol Use: No Drug/Substance Use Hx: No Substance Use Type: None Hx Substance Use Treatment: No <Kevin Kaiser - Last Filed: 04/23/19 05:16> <Emily Piper - Last Filed: 04/23/19 06:24> - Past Medical History Allergies/Adverse Reactions: Allergies Allergy/AdvReac Type Severity Reaction Status Date / Time Apple Tree Allergy Verified 04/23/19 02:46 avocado [Avocado] Allergy Verified 04/23/19 02:46 No Known Drug Allergies Allergy Verified 04/23/19 02:46 peach [[place]] Allergy Verified 04/23/19 02:46 Pear Tree Allergy Verified 04/23/19 02:46 TALLEY Allergy Uncoded 04/23/19 02:46 Home Medications: Ambulatory Orders Amoxicillin/Potassium Clav [Augmentin 875-125 Tablet] 1 each PO BID #20 tablet 11/08/18 Saccharomyces Boulardii [Florastor] 250 mg PO BID #30 capsule 11/08/18 Cephalexin [Keflex] 500 mg PO BID #14 capsule 04/23/19 Review of Systems - Review of Systems Able to Perform ROS?: Yes Comments:: 04/23/19 05:16 ROS: GENERAL/CONSTITUTIONAL: No fever or chills. No weakness. HEAD, EYES, EARS, NOSE AND THROAT: No change in vision. No ear pain or discharge. No sore throat. CARDIOVASCULAR: No chest pain or shortness of breath RESPIRATORY: No cough, wheezing, or hemoptysis. GASTROINTESTINAL: No nausea, vomiting, diarrhea or constipation. GENITOURINARY: Dysuria, increased frequency. MUSCULOSKELETAL: No joint or muscle swelling or pain. No neck or back pain. SKIN: No rash NEUROLOGIC: Headache. No vertigo, loss of consciousness, or change in strength/ sensation. ENDOCRINE: No increased thirst. No abnormal weight change HEMATOLOGIC/LYMPHATIC: No anemia, easy bleeding, or history of blood clots. ALLERGIC/IMMUNOLOGIC: No hives or skin allergy. <Kevin Kaiser - Last Filed: 04/23/19 05:16> *Physical Exam - Vital Signs Last Vital Signs Temp Pulse Resp BP Pulse Ox 98.6 F 64 19 107/72 100 04/23/19 02:28 04/23/19 02:28 04/23/19 02:28 04/23/19 02:28 04/23/19 02:28 - Physical Exam Comments: 04/23/19 05:18 PE: GENERAL: Awake, alert, and fully oriented, covering head with sweater, grimacing. HEAD: No signs of trauma, normocephalic, atraumatic EYES: PERRLA, EOMI, sclera anicteric, conjunctiva clear ENT: Auricles normal inspection, hearing grossly normal, nares patent, oropharynx clear without exudates. Moist mucosa NECK: Normal ROM, supple, no lymphadenopathy, JVD, or masses LUNGS: No distress, speaks full sentences, clear to auscultation bilaterally HEART: Regular rate and rhythm, normal S1 and S2, no murmurs, rubs or gallops, peripheral pulses normal and equal bilaterally. ABDOMEN: Soft, nontender, normoactive bowel sounds. No guarding, no rebound. No masses EXTREMITIES : Normal inspection, Normal range of motion, no edema. No clubbing or cyanosis. NEUROLOGICAL: Cranial nerves II through XII grossly intact. Normal speech, normal gait, no focal sensorimotor deficits SKIN: Warm, Dry, normal turgor, no rashes or lesions noted <Kevin Kaiser - Last Filed: 04/23/19 05:16> - Vital Signs Last Vital Signs Temp Pulse Resp BP Pulse Ox 98.6 F 64 19 107/72 100 04/23/19 02:28 04/23/19 02:28 04/23/19 02:28 04/23/19 02:28 04/23/19 02:28 <Emily Piper - Last Filed: 04/23/19 06:24> ED Treatment Course - LABORATORY CBC & Chemistry Diagram: 04/23/19 03:45 04/23/19 03:45 <Kevin Kaiser - Last Filed: 04/23/19 05:16> - LABORATORY CBC & Chemistry Diagram: 04/23/19 03:45 04/23/19 03:45 - ADDITIONAL ORDERS Additional order review: Laboratory Results 04/23/19 04/23/19 04/23/19 03:45 03:45 03:45 PT with INR 12.00 INR 1.02 Beta HCG, Quant < 1.0 Urine Color Yellow Urine Appearance Clear Urine pH 6.0 Ur Specific [place] 1.025 Urine Protein Trace Urine Glucose (UA) Negative Urine Ketones 2+ H Urine Blood 2+ H Urine Nitrite Negative Urine Bilirubin Negative Urine Urobilinogen 0.2 Ur Leukocyte Esterase Negative 04/23/19 03:45 RBC 4.32 MCV 89.0 MCHC 32.8 RDW 13.8 MPV 9.0 Neutrophils % 62.8 Lymphocytes % 24.6 D Monocytes % 8.8 Eosinophils % 3.1 Basophils % 0.7 <Emily Piper - Last Filed: 04/23/19 06:24> Medical Decision Making - Medical Decision Making 04/23/19 05:18 39 y/o F with no PMH p/w two days weakness, increased urinary frequency, dysuria , and throbbing left sided headache with light sensitivity, nausea, and vomiting x3, consistent with UTI and migraine headache. Given age and no prior history of migraines, intracranial mass also possible. Meningitis unlikely without fever. Plan: CBC CMP Hcg quant Metoclopramide Diphenhydramine Acetaminophen Head CT non-con Ceftriaxone 1,000 mg IV Keflex 500 mg BID x7 days for UTI Dispo: Pending imaging --- test negative --- Head CT negative for acute process. Likely d/c home <AwildaKevin - Last Filed: 04/23/19 05:16> *DC/Admit/Observation/Transfer - Discharge Dispostion Decision to Admit order: No <AwildaKevin - Last Filed: 04/23/19 05:16> - Discharge Dispostion Decision to Admit order: No <FelizEmily - Last Filed: 04/23/19 06:24> Diagnosis at time of Disposition: UTI (urinary tract infection) Qualifiers: Urinary tract infection type: site unspecified Hematuria presence: without hematuria Qualified Code(s): N39.0 - Urinary tract infection, site not specified Headache Qualifiers: Headache type: unspecified Headache chronicity pattern: acute headache Intractability: intractable Qualified Code(s): R51 - Headache - Discharge Dispostion Disposition: HOME Condition at time of disposition: Improved - Prescriptions Prescriptions: Cephalexin [Keflex] 500 mg PO BID #14 capsule - Patient Instructions Printed Discharge Instructions: DI for Urinary Tract Infection (UTI), DI for Headache Additional Instructions: You were evaluated in the emergency department for a headache as well as burning with urination. We are starting you on Keflex, an antibiotic that can treat your urinary tract infection. Please take it twice daily for the next week. Follow up with your primary care provider within the next week. Return to the emergency department if you develop high fevers, severe headache that wakes you up from sleep, or if you become dizzy or confused.
[2019-04-23] MEDS ORDERED: METOCLOPRAMIDE HCL INJECTION 10 MG/2 ML VIAL IVPUSH ONE (03:35)
[2019-04-23] MEDS ORDERED: ACETAMINOPHEN 500 MG TABLET (FP) PO ONE (03:35)
[2019-04-23 03:56] LABS: BASO % 0.7 % (0-2.0); EOS % 3.1 % (0-4.5); HEMATOCRIT 38.5 % (32.4-45.2); HEMOGLOBIN 12.6 GM/dL (10.7-15.3); LYMPH % 24.6 % (8-40); MCH 29.2 pg (25.7-33.7); MCHC 32.8 g/dl (32.0-36.0); MONO % 8.8 % (3.8-10.2); NEUT % 62.8 % (42.8-82.8); PLATELET COUNT 171 K/MM3 (134-434); RBC 4.32 M/mm3 (3.60-5.2); RDW 13.8 % (11.6-15.6)
[2019-04-23 04:12] LABS: INR 1.02 (0.83-1.09)
[2019-04-23] MEDS ORDERED: METOCLOPRAMIDE HCL INJECTION 10 MG/2 ML VIAL ONE (04:19)
[2019-04-23 04:21] LABS: URINE APPEARANCE Clear; URINE BILIRUBIN Negative (NEGATIVE); URINE COLOR Yellow; URINE GLUCOSE (UA) Negative (NEGATIVE); URINE KETONE 2+ (NEGATIVE); URINE LEUK ESTERASE Negative (NEGATIVE); URINE NITRITE Negative (NEGATIVE); URINE PROTEIN Trace (NEGATIVE); URINE UROBILINOGEN 0.2 mg/dL (0.2-1.0)
[2019-04-23 04:31] LABS: EPI CELLS 6.3 /HPF (0-5/HPF); HYALINE CASTS 4.87 /lpf (0-8); URINE RBC 2.2 /hpf (0-4); URINE WBC 1.6 /hpf (0-5)
--- NOTE | 2019-04-23 04:32 | PDOC ---
Attending Attestation - Resident Resident Name: Kevin Kaiser - ED Attending Attestation I have performed the following: I have examined & evaluated the patient, The case was reviewed & discussed with the resident, I agree w/resident's findings & plan - HPI HPI: 04/23/19 05:03 Pt comes with headache and vomiting. She has normal vitals. Afebrile No ill contacts - Physicial Exam PE: 04/23/19 06:47 Agree with exam. Pt has normal neuro exam and normal physical. - Medical Decision Making 04/23/19 04:32 04/23/19 04:31 Benadryl made pt dizzy and now she is anxious; however hear headache is better. She has normal CBC and preg negative and chem pending. 04/23/19 04:32 04/23/19 04:59 Patient Name: JOHN FUNK THIS IS A PRELIMINARY REPORT FROM [facility] [employer] DATE OF SERVICE: 2019-04-23 04:35:38 IMAGES: 142 EXAM: CT HEAD WITHOUT CONTRAST No acute brain parenchymal abnormality. No hemorrhage, mass or acute territorial infarct. 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 Clear visualized paranasal sinuses. Visualized mastoid air cells clear. 04/23/19 06:47 Pt feels vastly improved; she was hydrated and she is ready to go home.
[2019-04-23 04:34] LABS: ALBUMIN 3.6 g/dl (3.4-5.0); BILIRUBIN,TOTAL 0.4 mg/dL (0.2-1); BLOOD UREA NITROGEN 17.9 mg/dL (7-18); CALCIUM 8.7 mg/dL (8.5-10.1); CREATININE 0.8 mg/dL (0.55-1.3); POTASSIUM 3.9 mmol/L (3.5-5.1)
[2019-04-23 04:49] VITALS: PULSE 70
[2019-04-23] MEDS ORDERED: ACETAMINOPHEN 500 MG TABLET (FP) ONE (04:56)
[2019-04-23] MEDS ORDERED: CEFTRIAXONE 1,000 MG in DEXTROSE 5%-WATER - 50 ML IVPB ONE (05:00)
[2019-04-23] MEDS ORDERED: SODIUM CHLORIDE 0.9% 500 ML INFUS.BAG IV ONE (05:01)
[2019-04-23] MEDS ORDERED: SODIUM CHLORIDE 1,000 ML IV STA (05:01)
[2019-04-23] MEDS ORDERED: CEFTRIAXONE 1 GM/50 ML BAG ONE (05:09)
[2019-04-23 06:33] VITALS: BP 115/80
== END 2019-04-23 06:33 | disposition home or self-care (01) ==
LOC: JER 02:28
PROC: 3E033GC Introduction of Other Therapeutic Substance into Peripheral Vein, Percutaneous Approach (ICD-10-PCS; principal; 2019-04-23)
PROC: 3E0337Z Introduction of Electrolytic and Water Balance Substance into Peripheral Vein, Percutaneous Approach (ICD-10-PCS; 2019-04-23)
PROC: 3E033NZ Introduction of Analgesics, Hypnotics, Sedatives into Peripheral Vein, Percutaneous Approach (ICD-10-PCS; 2019-04-23)
DX: N39.0 Urinary tract infection, site not specified (principal); R51 Headache
CPT/HCPCS: 36415; 70450-TC; 80053; 81003; 84702; 85025; 85610; 99283-25; J7030

== ENCOUNTER → 2019-05-14 | Emergency (ER) | payer BC ==
[~2019-05-14] MED LIST: ACETAMINOPHEN 1000 MG/100 ML VIAL (NON FORMULARY) IVPB ONE; ACETAMINOPHEN INJECTION 100 ML IVPB ONE; ONDANSETRON 4 MG/2 ML VIAL IVPUSH ONE; ONDANSETRON 4 MG/2 ML VIAL ONE; SODIUM CHLORIDE 1,000 ML IV STA
[2019-05-14 22:02] VITALS: BP 98/60; PULSE 63; TEMP 98.2; BMI 25.0
--- NOTE | 2019-05-14 23:55 | PDOC ---
History of Present Illness - General Chief Complaint: Pain Stated Complaint: ABD PAIN Time Seen by Provider: 05/14/19 23:54 History Source: Patient Exam Limitations: No Limitations - History of Present Illness Initial Comments: 05/15/19 00:05 HISTORY OF PRESENT ILLNESS: 39-year-old woman denies medical history presents emergency department for evaluation of headaches, malaise, fatigue and abdominal pain started today. 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 She came home and ate [place] food which causes an increase in her nausea with 1 episode of nonbilious nonbloody vomiting. Patient had continued nausea after the vomiting which is her stated reason for emergency department evaluation. She denies fevers but reports having chills. No recent travel or sick contacts. PAST MEDICAL HISTORY: Denies past medical history SURGICAL HISTORY: Denies ALLERGIES: Benadryl REVIEW OF SYSTEMS General/Constitutional:see HPI HEENT: Denies change in vision. Denies ear pain or discharge. Denies sore throat. Cardiovascular: Denies chest pain or shortness of breath. Respiratory: Denies cough, wheezing, or hemoptysis. Gastrointestinal: see HPI Genitourinary: Denies dysuria, frequency, or change in urination. Musculoskeletal: Denies joint or muscle swelling or pain. Denies neck or back pain. Skin and breasts: Denies rash or easy bruising. Neurologic: see HPI Psychiatric: Denies depression or anxiety. Endocrine: Denies increased thirst. Denies abnormal weight change. Hematologic/Lymphatic: Denies anemia, easy bleeding, or history of blood clots. Allergic/Immunologic: Denies hives or skin allergy. Denies latex allergy. PHYSICAL EXAM General Appearance: Well-appearing, appropriately dressed. No apparent distress , no intoxication. HEENT: EOMI, PERRLA, normal ENT inspection, normal voice, TMs normal, pharynx normal. No conjunctival pallor. No photophobia, scleral icterus. Respiratory/Chest: Lungs CTAB. No shortness of breath, chest tenderness, respiratory distress, accessory muscle use. No crackles, rales, rhonchi, stridor , wheezing, dullness Cardiovascular: RRR. S1, S2. No JVD, murmur, bradycardia, tachycardia. Vascular Pulses: Dorsalis-Pedis (R): 2+, Dorsalis-Pedis (L): 2+ Gastrointestinal/Abdominal: Normal bowel sounds. Abdomen soft, non-distended. No tenderness or rebound tenderness. No organomegaly, pulsatile mass, guarding, hernia, hepatomegaly, splenomegaly. Lymphatic: No adenopathy, tenderness. 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 Fully oriented, alert. Appropriate mood/affect. Motor strength 5/5. No appreciable EOM palsy, facial droop or sensory deficit. Past History - Past Medical History Allergies/Adverse Reactions: Allergies Allergy/AdvReac Type Severity Reaction Status Date / Time Apple Tree Allergy Verified 05/14/19 21:59 avocado [Avocado] Allergy Verified 05/14/19 21:59 diphenhydramine Allergy Verified 05/14/19 22:00 [From Benadryl] No Known Drug Allergies Allergy Verified 05/14/19 21:59 peach [[place]] Allergy Verified 05/14/19 21:59 Pear Tree Allergy Verified 05/14/19 21:59 TALLEY Allergy Uncoded 05/14/19 21:59 Home Medications: Ambulatory Orders Amoxicillin/Potassium Clav [Augmentin 875-125 Tablet] 1 each PO BID #20 tablet 11/08/18 Saccharomyces Boulardii [Florastor] 250 mg PO BID #30 capsule 11/08/18 Cephalexin [Keflex] 500 mg PO BID #14 capsule 04/23/19 Anemia: No Asthma: No Cancer: No Cardiac Disorders: No CVA: No COPD: No CHF: No Dementia: No Diabetes: No GI Disorders: No Disorders: No HTN: No Hypercholesterolemia: No Liver Disease: No Seizures: No Thyroid Disease: No - Surgical History Abdominal Surgery: Yes (D&C) - Immunization History Immunization Up to Date: Yes - Suicide/Smoking/Psychosocial Hx Smoking Status: No Smoking History: Never smoked Have you smoked in the past 12 months: No Number of Cigarettes Smoked Daily: 0 Cigars Per Day: 0 'Breaking Loose' booklet given: 01/31/14 Hx Alcohol Use: No Drug/Substance Use Hx: No Substance Use Type: None Hx Substance Use Treatment: No *Physical Exam - Vital Signs Last Vital Signs Temp Pulse Resp BP Pulse Ox 98.2 F 63 18 98/60 100 05/14/19 22:00 05/14/19 22:00 05/14/19 22:00 05/14/19 22:00 05/14/19 22:00 ED Treatment Course - LABORATORY CBC & Chemistry Diagram: 05/15/19 00:15 05/15/19 00:15 Medical Decision Making - Medical Decision Making 05/15/19 00:10 A/P: 39-year-old woman with 1 day of headache, weakness, abdominal pain, chills and vomiting Patient most likely experiencing a viral illness/acute gastroenteritis. Abdominal labs Influenza testing Normal saline 1 L IV bolus Tylenol 1 g IV now Zofran 4 mg IV push Reassess *DC/Admit/Observation/Transfer Diagnosis at time of Disposition: Viral illness - Referrals Referrals: Sarah Diane MD [Primary Care Provider] - - Patient Instructions - Post Discharge Activity
--- NOTE | 2019-05-15 | PDOC ---
*Physical Exam - Vital Signs Last Vital Signs Temp Pulse Resp BP Pulse Ox 98.2 F 63 18 98/60 100 05/14/19 22:00 05/14/19 22:00 05/14/19 22:00 05/14/19 22:00 05/14/19 22:00 ED Treatment Course - LABORATORY CBC & Chemistry Diagram: 05/15/19 00:15 05/15/19 00:15 Medical Decision Making - Medical Decision Making 05/15/19 00:00 Patient seen by the advanced practice provider under my direct supervision. Ancillary testing reviewed as necessary. I agree with plan as outlined by the advanced practice provider. *DC/Admit/Observation/Transfer Diagnosis at time of Disposition: Viral illness - Referrals Referrals: Sarah Diane MD [Primary Care Provider] - - Patient Instructions - Post Discharge Activity
[2019-05-15 00:57] LABS: BASO % 0.3 % (0-2.0); EOS % 0.9 % (0-4.5); HEMATOCRIT 39.5 % (32.4-45.2); HEMOGLOBIN 12.7 GM/dL (10.7-15.3); LYMPH % 14.2 % (8-40); MCH 28.8 pg (25.7-33.7); MCHC 32.3 g/dl (32.0-36.0); MEAN CELL VOLUME 89.2 fl (80-96); MEAN PLT VOLUME 9.3 fl (7.5-11.1); NEUT % 80.6 % (42.8-82.8); PLATELET COUNT 178 K/MM3 (134-434); RBC 4.42 M/mm3 (3.60-5.2); RDW 13.5 % (11.6-15.6); WHITE BLOOD COUNT 10.3 K/mm3 (4.0-10.0)
[2019-05-15 01:24] LABS: ALBUMIN 3.8 g/dl (3.4-5.0); BILIRUBIN,TOTAL 0.6 mg/dL (0.2-1); BLOOD UREA NITROGEN 16.8 mg/dL (7-18); CALCIUM 8.7 mg/dL (8.5-10.1); CREATININE 0.8 mg/dL (0.55-1.3); POTASSIUM 3.8 mmol/L (3.5-5.1); TOT PROT 7.3 g/dl (6.4-8.2)
== END | disposition left against medical advice (07) ==
LOC: JER 21:49
DX: B34.9 Viral infection, unspecified (principal)
CPT/HCPCS: 36415; 80053; 83690; 85025; 87804; 99281-25